=== PATIENT | male | born 1960 | race Caucasian/White ===

== ENCOUNTER 2021-04-05 12:23 | Emergency (ER) | payer BC, SELFPAY ==
--- NOTE | ~2021-04-05 | XR_ITS ---
XR foot RT min 3V 04/05/2021 13:55 Indication: Right foot pain. Patient stepped on glass. Procedure: 4 views right foot Comparison: No prior studies for comparison. Findings: There is osteoarthritis of the first MTP joint with mild hallux valgus. No acute fracture o r traumatic malalignment. No focal soft tissue abnormality. No foreign bodies identified. There is mi ld degenerative change of the talonavicular joint. There is anatomic alignment. Impression: 1: No radiopaque foreign bodies identified. 2: Mild polyarticular osteoarthritis. Reviewed, dictated and finalized at location A. Impression: 1: No radiopaque foreign bodies identified. 2: Mild polyarticular osteoarthritis.
--- NOTE | ~2021-04-05 | XR_ITS ---
XR hand RT min 3V 04/05/2021 13:55 Indication: Deep palm laceration. Procedure: 3 views right hand Comparison: No prior studies for comparison. Findings: There is soft tissue swelling overlying the metacarpals. There is soft tissue gas along the volar aspect of the soft tissues. No foreign body is identified. No acute fracture or traumatic antony lignment. There is mild polyarticular osteoarthritis. Impression: 1: No evidence for radiopaque foreign body. 2: No acute fracture or traumatic malalignment. Reviewed, dictated and finalized at location A. Impression: 1: No evidence for radiopaque foreign body. 2: No acute fracture or traumatic malalignment.
[2021-04-05 13:05] VITALS: BP 172/77; PULSE 91; RESP 18; TEMP 36.1; O2SAT 98
--- NOTE | 2021-04-05 14:20 | PC.NURSE ---
Attempted to give patient IV fentanyl, patient refused dose stating that he is allergic to all opiates. Reported to
--- NOTE | 2021-04-05 14:30 | ED.GENADULT ---
HPI - General Adult General Chief complaint: Extremity Injury, Upper Stated complaint: hand injury Time Seen by Provider: 04/05/21 13:04 Source: patient History of Present Illness HPI narrative: Patient is a 61 y/o male complaining of right hand pain following a fall around 7:30 AM this morning. He states that he was carrying a mirror which slipped out of his hands and he fell. He states that his right hand landed on broke mirror. He describes his pain as sharp and rates it as 10/10. There is no alleviating or exacerbating factor. He states that his last Tetanus shot was approximately 4 years ago. He has decreased sensation of right fingers and decreased ROM. He also has some right foot pain. He denies other injuries. Related Data Allergies Allergy/AdvReac Type Severity Reaction Status Date / Time codeine Allergy Swelling Verified 04/05/21 13:11 morphine Allergy Swelling Verified 04/05/21 13:11 Sulfa (Sulfonamide Allergy Hives Verified 04/05/21 13:10 Antibiotics) Review of Systems Constitutional: Constitutional: Denies chills, Denies fever(s), Denies headache(s) and Denies weakness Eyes: Eyes: Denies blurry vision ENT: Denies headache(s) and Denies neck pain Cardiovascular: Cardiovascular: Denies chest pain and Denies dyspnea Respiratory: Respiratory: Denies cough and Denies dyspnea Gastrointestinal: Gastrointestinal: Denies abdominal pain, Denies diarrhea, Denies nausea and Denies vomiting Genitourinary: Genitourinary: Denies hematuria and Denies dysuria Musculoskeletal: Musculoskeletal: Reports as per HPI, Denies back pain, Denies neck pain and Reports other (right hand pain) Integumentary/Breasts: Skin/Breast: Reports as per HPI and Reports wounds (right hand laceration) Neurologic: Denies headache(s) and Denies weakness [facility], [facility] Social History Social History Gender identity (if verbalized by the patient): Male Exam Const: General: no acute distress and well developed Orientation/consciousness: oriented to person, oriented to place, oriented to time and patient oriented x3 Eyes: General: appearance normal, both eyes and all related structures Conjunctivae: conjunctivae normal Neck: Neck: normal visual inspection and full ROM GI: GI Palp: No abdominal tenderness and Yes Soft to palpation Skin: General skin exam: normal color and turgor normal Trauma: laceration (5 cm laceration on volar aspect of right palm) Neuro: General: oriented to person, oriented to place, oriented to time and patient oriented x3 Cognition (Neuro): normal cognition Extrem: General: normal to inspection, full ROM and no pedal edema Right upper extremity: Extremity exam: right hand swelling and other (decreased sensation and decreased ROM of finger) Psych: Appearance: grossly normal Mental Status: mental status grossly normal Affect: normal affect Course Reevaluation(s) Reevaluation #1: Discussed with patient about his treatment plan and strongly advised him to be transferred to [place] to be evaluated by hand surgery. However, patient refuses transfer. He states that he wants to leave now and go to [place] tomorrow. Informed patient that he may suffer permanent damage resulting in possible loss of his hand and even as a result of delayed treatment. He still wants to leave. He will leave [place]. He is awake, alert and competent to make medical decision for himself. Date: 04/05/21 Consultations Consultation #1: Discussed with Dr. Otto (hand surgery) at [place], who agrees to accept the patient for transfer. Date: 04/05/21 Time: 14:50 Vital Signs Vital signs: Vital Signs Temperature 36.1 C L 04/05/21 13:05 Pulse Rate 91 04/05/21 13:05 Respiratory Rate 18 04/05/21 13:05 Blood Pressure 172/77 H 04/05/21 13:05 Pulse Oximetry 98 04/05/21 13:05 Temperature 36.1 C L 04/05/21 13:05 Pulse Rate 91 04/05/21 13:05 Respiratory Rate 18 04/05/21 13:05 Blood Pr
--- NOTE | 2021-04-05 14:53 | PC.NURSE ---
Patient told nursing staff that he would like to leave. Patient was educated by this RN and another RN about his risks of leaving AMA. Dr. Lynch also spoke with the patient and educated him on the risk of leaving his hand untreated, patient was also offered a nicotine patch to help with the smoking cravings. Patient desired to leave AMA despite the risks. Patient was educated that he could come back into the emergency room if he would like to get his hand treated.
== END 2021-04-05 14:50 | disposition left against medical advice (07) ==
LOC: ANHED 13:26
PROVIDERS: Emergency Provider Emergency Medicine
DX: S61.411A Laceration without foreign body of right hand, initial encounter (principal); M79.89 Other specified soft tissue disorders; W01.110A Fall on same level from slipping, tripping and stumbling with subsequent striking against sharp glass, initial encounter
CPT/HCPCS: 29125; 73130; 73630; 99284

== ENCOUNTER 2021-04-05 18:50 | Emergency (ER) | payer BC, SELFPAY ==
[2021-04-05 18:55] VITALS: BP 138/89; PULSE 138; RESP 20; TEMP 36.7; O2SAT 98
[2021-04-05 20:43] VITALS: BP 145/97; PULSE 99; RESP 16; TEMP 36.8; O2SAT 99
--- NOTE | 2021-04-05 20:53 | ED.GENADULT ---
HPI - General Adult General Chief complaint: Extremity Injury, Upper <Pennie Lynch MD - Last Filed: 04/06/21 11:52> Stated complaint: laceration <Pennie Lynch MD - Last Filed: 04/06/21 11:52> Time Seen by Provider: 04/05/21 20:53 <Pennie Lynch MD - Last Filed: 04/06/21 11:52> Source: patient <Pennie Lynch MD - Last Filed: 04/06/21 11:52> History of Present Illness HPI narrative: Patient is a 61 y/o male complaining of throbbing right hand pain. He rates his pain as 10/10. He was seen in this ED earlier for laceration. Due to concern for possible compartment syndrome, arrangement was made for him to be transferred to [facility] for evaluation by hand surgery. However, patient left AMA. He now returns to this ED ready to be transferred to [place]. <Pennie Lynch MD - Last Filed: 04/06/21 11:52> Related Data Allergies/adverse reactions: Allergies Allergy/AdvReac Type Severity Reaction Status Date / Time codeine Allergy Swelling Verified 04/05/21 13:11 morphine Allergy Swelling Verified 04/05/21 13:11 Sulfa (Sulfonamide Allergy Hives Verified 04/05/21 13:10 Antibiotics) <Pennie Lynch MD - Last Filed: 04/06/21 11:52> Review of Systems Constitutional: Constitutional: Denies chills, Denies fever(s), Denies headache(s) and Denies weakness <Pennie Lynch MD - Last Filed: 04/06/21 11:52> Eyes: Eyes: Denies blurry vision <Pennie Lynch MD - Last Filed: 04/06/21 11:52> ENT: Denies headache(s) and Denies neck pain <Pennie Lynch MD - Last Filed: 04/06/21 11:52> Cardiovascular: Cardiovascular: Denies chest pain and Denies dyspnea <Pennie Lynch MD - Last Filed: 04/06/21 11:52> Respiratory: Respiratory: Denies cough and Denies dyspnea <Pennie Lynch MD - Last Filed: 04/06/21 11:52> Gastrointestinal: Gastrointestinal: Denies abdominal pain, Denies diarrhea, Denies nausea and Denies vomiting <Pennie Lynch MD - Last Filed: 04/06/21 11:52> Genitourinary: Genitourinary: Denies hematuria and Denies dysuria <Pennie Lynch MD - Last Filed: 04/06/21 11:52> Musculoskeletal: Musculoskeletal: Denies back pain, Denies neck pain and Reports other (right hand pain and swelling) <Pennie Lynch MD - Last Filed: 04/06/21 11:52> Integumentary/Breasts: Skin/Breast: Reports wounds (right hand laceration) <Pennie Lynch MD - Last Filed: 04/06/21 11:52> Neurologic: Denies headache(s) and Denies weakness <Pennie Lynch MD - Last Filed: 04/06/21 11:52> [facility] Social History Social History: Social History Gender identity (if verbalized by the patient): Male <Pennie Lynch MD - Last Filed: 04/06/21 11:52> Exam Const: General: no acute distress and well developed <Pennie Lynch MD - Last Filed: 04/06/21 11:52> Orientation/consciousness: oriented to person, oriented to place, oriented to time and patient oriented x3 <Pennie Lynch MD - Last Filed: 04/06/21 11:52> HENMT: Head: normocephalic <Pennie Lynch MD - Last Filed: 04/06/21 11:52> Ears: external ears normal <Pennie Lynch MD - Last Filed: 04/06/21 11:52> General nose exam: Normal external nose present <Pennie Lynch MD - Last Filed: 04/06/21 11:52> Eyes: General: appearance normal, both eyes and all related structures <Pennie Lynch MD - Last Filed: 04/06/21 11:52> Conjunctivae: conjunctivae normal <Pennie Lynch MD - Last Filed: 04/06/21 11:52> Neck: Neck: normal visual inspection and full ROM <Pennie Lynch MD - Last Filed: 04/06/21 11:52> GI: GI Palp: No abdominal tenderness and Yes Soft to palpation <Pennie Lynch MD - Last Filed: 04/06/21 11:52> Skin: General skin exam: normal color and turgor normal <Pennie Lynch MD - Last Filed: 04/06/21 11:52> Trauma: laceration (5 cm laceration right hand) <Pennie Lynch MD - Last Filed: 04/06/21 11:52> Neuro: General: oriented to person, oriented to place, oriented to time and patient
[2021-04-05 22:59] VITALS: BP 142/94; PULSE 84; RESP 16; O2SAT 97
== END 2021-04-05 22:59 | disposition home or self-care (01) ==
PROVIDERS: Emergency Provider Emergency Medicine
DX: S61.411A Laceration without foreign body of right hand, initial encounter (principal); W25.XXXA Contact with sharp glass, initial encounter
CPT/HCPCS: 29125; 99282

== ENCOUNTER 2021-04-14 08:57 | Emergency (ER) | payer BC, SELFPAY ==
--- NOTE | ~2021-04-14 | XR_ITS ---
EXAMINATION: XR hand RT min 3V INDICATION: Right hand pain and swelling TECHNIQUE: Three views of the right hand are obtained. COMPARISON: 04/05/2021 FINDINGS: Soft tissue swelling surrounding metacarpals persists but has decreased. Bone alignment is normal. There is no fracture. Mild osteoarthritis is noted at the triscaphe and second third carpopha langeal joints. IMPRESSION: 1. Resolving soft tissue swelling without acute osseous abnormality. Reviewed, dictated and finalized at location A.
[2021-04-14 09:00] VITALS: BP 172/94; PULSE 99; RESP 15; TEMP 36.6; O2SAT 97
[2021-04-14 09:27] LABS: Basophils Percent Auto 0.3 % (0.2-1.2); Eosinophils Absolute Auto 0.1 K/mm3 (0-0.3); Hematocrit 41.7 % (42.0-52.0); Immature Granulocyte Absolute 0.01 K/mm3 (0.00-0.031); Immature Granulocyte Percent A 0.2 % (0-0.5); Lymphocytes Absolute Auto 1.74 K/mm3 (0.9-3.2); Lymphocytes Percent Auto 28.5 % (18.3-44.2); Mean Corpuscular HGB Conc 33.6 g/dl (32-36); Mean Corpuscular Hemoglobin 31.3 pg (26-34); Mean Corpuscular Volume 93.1 fl (80-100); Monocytes Absolute Auto 0.6 K/mm3 (0.1-0.6); Monocytes Percent Auto 10.5 % (2.6-8.5); Neutrophils Absolute Auto 3.6 K/mm3 (1.3-6.7); Neutrophils Percent Auto 58.5 % (45.5-73.1); Platelet Count Result 328 k/mm3 (150-375); Red Blood Count 4.48 M/mm3 (4.6-6.20); Red Cell Distribution Width 12.3 % (11.5-14.5); White Blood Count 6.1 K/mm3 (4.5-10.0)
--- NOTE | 2021-04-14 09:39 | ED.WOUNDLAC ---
HPI - Wound/Laceration General Chief Complaint: Wound/Laceration Stated Complaint: right hand injury Time Seen by Provider: 04/14/21 09:01 Source: patient Mode of arrival: ambulatory Limitations: no limitations History of Present Illness HPI narrative: Patient is a 61-year-old male who was seen on 04/05 with a laceration to right hand. Patient was to follow-up with [facility] hand surgeon, Dr. Otto in clinic on 04/06. Patient reports [facility] was unable to see him related to insurance. Patient reports he did not seek further follow up care related to injury. Patient presents complaining of right hand pain and swelling. Patient is a poor historian. Patient's hand appears in splint that is very dirty. Patient reports pain of 8/10. Related Data Allergies Allergy/AdvReac Type Severity Reaction Status Date / Time codeine Allergy Swelling Verified 04/05/21 13:11 morphine Allergy Swelling Verified 04/05/21 13:11 Sulfa (Sulfonamide Allergy Hives Verified 04/05/21 13:10 Antibiotics) Review of Systems Review of Systems: Narrative: CONSTITUTIONAL: Denies fever, chills, or sweats. EYES: Denies visual changes, redness, or discharge. ENT: Denies rhinorrhea, congestion, sore throat, or otalgia. CARDIOVASCULAR: Denies chest pain, palpitations, or edema. RESPIRATORY: Denies cough or dyspnea. GASTROINTESTINAL: Denies abdominal pain, nausea, vomiting, or diarrhea. GENITOURINARY: Denies dysuria or hematuria. SKIN: Denies rash or itching. MUSCULOSKELETAL: Reports right hand pain NEUROLOGIC: Denies headache, numbness, dizziness, or weakness. PSYCHIATRIC: Denies anxiety or depression. [facility] Past Medical History Medical History (Updated 04/14/21 @ 12:20 by YODIT Chaudhari) High cholesterol Surgical History Surgical History (Updated 04/14/21 @ 09:42 by YODIT Chaudhari) No significant past surgical history Family History Family History (Updated 04/14/21 @ 09:42 by YODIT Chaudhari) Other Heart disease Social History Social History Gender identity (if verbalized by the patient): Male Exam Narrative: Exam Narrative: GENERAL: Well-appearing, well-nourished, and in no acute distress. HEAD: Normocephalic, atraumatic. EYES: EOMI. No redness or drainage. Conjunctiva are normal. ENT: Mucous membranes pink and moist. CHEST: No respiratory distress. Clear to auscultation. HEART: Regular rate and rhythm. No murmur appreciated. Normal peripheral pulses. GI: Soft, nontender without rebound, or guarding. EXTREMITIES: Large wound to palm of right hand, edema noted, decreased range of motion to fingers SKIN: Warm, dry, no rash. NEURO: No focal deficits. Alert and oriented x3. Gait steady. PSYCH: Normal affect. No signs of depression or anxiety. Course Reevaluation(s) Reevaluation #1: Dr. Díaz in to evaluate patient's hand. Dr. Díaz dressed and splinted hand. Patient to follow up with Dr. Díaz next week for surgical repair. Vital Signs Vital signs: Vital Signs Temperature 36.6 C 04/14/21 09:00 Pulse Rate 99 04/14/21 09:00 Respiratory Rate 15 04/14/21 09:00 Blood Pressure 172/94 H 04/14/21 09:00 Pulse Oximetry 97 04/14/21 09:00 Temperature 36.6 C 04/14/21 09:00 Pulse Rate 72 04/14/21 11:05 Respiratory Rate 16 04/14/21 11:05 Blood Pressure 133/75 04/14/21 11:05 Pulse Oximetry 100 04/14/21 11:05 MDM - Wound/Laceration MDM Narrative Medical decision making narrative: Patient's hand splinted and dressed by Dr. Díaz. Patient to be started on antibiotics per Dr. Díaz and follow up with Dr. Díaz next week for surgical repair. Patient agrees with plan of care. Patient is stable for discharge at this time. Differential Diagnosis Differential diagnosis: Likely laceration, abscess, abrasion and avulsion of skin Lab Data Result diagrams: 04/14/21 09:19 04/14/21 09:19 Labs: Lab Results 04/14/2103/23
[2021-04-14 09:40] LABS: Alkaline Phosphatase 64 U/L (38-126); Aspartate Amino Transferase 35 U/L (17-59); Bilirubin,Total 0.3 mg/dL (0.2-1.3); Blood Urea Nitrogen 9 mg/dL (9-20); Calcium 8.8 mg/dL (8.4-10.2); Carbon Dioxide 27 mmol/L (22-30); Estimated Glomerular Filt Rate > 60; Glucose 135 mg/dL (75-110)
[2021-04-14 10:10] LABS: Alanine Aminotransferase 13 U/L (4-50); Anion Gap 6 mmol/L (8-16); Chloride 103 mmol/L (98-107); Sodium 136 mmol/L (137-145)
[2021-04-14 11:05] VITALS: BP 133/75; PULSE 72; RESP 16; O2SAT 100
--- NOTE | 2021-04-14 11:14 | PC.NURSE ---
pT AWAITING DR DE GUZMAN TO COME FOR ASSESSMENT. PT VERBALIZED UNDERSTANDING.
--- NOTE | 2021-04-14 11:47 | PC.NURSE ---
DR. DE GUZMAN AT BEDSIDE DRESSING WOUND AND PLACING NEW SPLINT
--- NOTE | 2021-04-14 12:27 | WPDCN ---
Assessment and Plan Assessment and plan (1) Laceration of right palm: Code(s): S61.411A - Laceration without foreign body of right hand, initial encounter Status: Acute (2) Flexor tendon laceration of right hand with open wound: Code(s): S66.821A - Laceration of other specified muscles, fascia and tendons at wrist and hand level, right hand, initial encounter; S61.401A - Unspecified open wound of right hand, initial encounter Status: Acute (3) Digital nerve laceration, finger: Code(s): S64.40XA - Injury of digital nerve of unspecified finger, initial encounter Status: Acute Additional Plan 1. Bandage 2. Splint. 3. Keflex. 4. F/U with Dr Díaz to register as an office patient and schedule surgical repair. Pt prefers tending to other business at this time rather than repair today. HPI Data of Consult Date/Time: 04/14/21 12:27 Primary Care Provider: Matthias Lewis MD Consult Narrative Narrative: Orlando Gillespie is a 61 year old male patient with complaints of pain and dysfunction of his right hand. Patient has been in this ER 5 days ago with the same complaint after lacerating his right mid palm on the broken mirror moving furniture at his home. 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 Attempt was made to refer him to [facility]. For. Reasons he was not accepted as an emergent patient. [facility] was [facility] and when he presented there apparently was told that his insurance could not be excepted. The patient now presents for further care of his right hand. The hand is not infected. There is a 4 cm laceration in the right mid palm. He has inability to flex either interphalangeal joint of the middle finger and is anesthetic at 1 aspect of the middle finger. I he had been discharged with a splint and bandage and apparently was still in that wound returning here today. It was said to been dirty. That The patient is somewhat of a difficult historian. We were able to identify insurance information from the computer at [place]. Patient has been under the care of Dr. Lewis in [place]. I believe he also has seen Dr. Cortez. Says he is supposed to be seeing Samuel Morrison. And I believed he has been seen by Dr. Chapin. He takes no medications at this time though he has been on medication for hypercholesterolemia and has been on diclofenac for arthritic pain. He told me that Dr. Cortez thought that he might have throat cancer. This apparently was based on a change in the character of his voice that did not resolve. He said he has had bronchitis in the past and was on an inhaler for a time. Patient does not recall any sort of scans were endoscopy. Mr. pedraza continues to smoke. Exam reveals the findings listed above. [facility] Past Medical History Medical History (Updated 04/14/21 @ 12:39 by Channing Díaz MD) High cholesterol Surgical History Surgical History (Updated 04/14/21 @ 09:42 by YODIT Chaudhari) No significant past surgical history Family History Family History (Updated 04/14/21 @ 09:42 by YODIT Chaudhari) Other Heart disease Social History Social History Gender identity (if verbalized by the patient): Male Meds Home Medications and Allergies Home Medications Medication Instructions Recorded Confirmed Type cephalexin 500 mg PO Q6H 5 Days #20 cap 04/14/21 Rx Allergies Allergy/AdvReac Type Severity Reaction Status Date / Time codeine Allergy Swelling Verified 04/05/21 13:11 morphine Allergy Swelling Verified 04/05/21 13:11 Sulfa (Sulfonamide Allergy Hives Verified 04/05/21 13:10 Antibiotics) Vital Signs Vital Signs - 24 hr 04/14/21 09:00 04/14/21 11:05 Temperature 97.8 F Pulse Rate 99 72 Respir
[2021-04-14 12:28] VITALS: BP 127/68; PULSE 72; RESP 15; O2SAT 97
== END 2021-04-14 12:29 | disposition home or self-care (01) ==
PROVIDERS: Emergency Provider Nurse Practitioner; PCP Emergency Medicine
DX: S66.821A Laceration of other specified muscles, fascia and tendons at wrist and hand level, right hand, initial encounter (principal); S64.40XA Injury of digital nerve of unspecified finger, initial encounter; S61.411A Laceration without foreign body of right hand, initial encounter; W25.XXXA Contact with sharp glass, initial encounter
CPT/HCPCS: 29125; 36415; 73130; 80053; 85025; 99283

== ENCOUNTER 2022-02-27 14:52 | Emergency (ER) | payer BC, SELFPAY ==
--- NOTE | ~2022-02-27 | XR_ITS ---
EXAM: XR tibia fibula RT 2V HISTORY: injury -INJURY TODAY,PAIN AND WOUND LOWER TIBFIB COMPARISON: None available FINDINGS: Normal mineralization. No fracture or dislocation. No lytic or blastic lesion. Joint space s maintained. No erosion or periosteal change. Soft tissues within normal limits. IMPRESSION: No acute osseous finding in the right tibia/fibula. Reviewed, dictated and finalized at location K.
[2022-02-27 15:04] VITALS: BP 106/69; PULSE 137; RESP 22; TEMP 36.3; O2SAT 99
--- NOTE | 2022-02-27 16:51 | ED.WOUNDLAC ---
HPI - Wound/Laceration General Chief Complaint: Wound/Laceration Stated Complaint: right leg laceration Time Seen by Provider: 02/27/22 16:46 History of Present Illness HPI narrative: 61-year-old male presents the emergency room for evaluation of a laceration to his right bender. Patient states that he bumped into a piece of glass, causing the glass to break and cutting his bender. Patient states his tetanus is up-to-date Related Data Allergies Allergy/AdvReac Type Severity Reaction Status Date / Time codeine Allergy Swelling Verified 04/05/21 13:11 morphine Allergy Swelling Verified 04/05/21 13:11 Sulfa (Sulfonamide Allergy Hives Verified 04/05/21 13:10 Antibiotics) Review of Systems Review of Systems: CONSTITUTIONAL: Denies fever, chills, or sweats. EYES: Denies visual changes, redness, or discharge. ENT: Denies rhinorrhea, congestion, sore throat, or otalgia. CARDIOVASCULAR: Denies chest pain, palpitations, or edema. RESPIRATORY: Denies cough or dyspnea. GASTROINTESTINAL: Denies abdominal pain, nausea, vomiting, or diarrhea. GENITOURINARY: Denies dysuria or hematuria. SKIN: Laceration to right lower extremity MUSCULOSKELETAL: Reports tenderness to right lower leg NEUROLOGIC: Denies headache, numbness, dizziness, or weakness. PSYCHIATRIC: Denies anxiety or depression. [facility] Past Medical History Medical History High cholesterol Surgical History Surgical History No significant past surgical history Family History Family History Other Heart disease Social History Social History Gender identity (if verbalized by the patient): Male Exam Narrative: GENERAL: Well-appearing, well-nourished, and in no acute distress. HEAD: Normocephalic, atraumatic. EYES: PERRLA and EOMI. CHEST: Clear to auscultation. No respiratory distress. No wheezes rales or rhonchi HEART: Regular rate and rhythm. No murmur heard. Normal peripheral pulses. ABDOMEN: Soft, nontender, nondistended, normal active bowel sounds. EXTREMITIES: Tenderness to the tibial surface of the right lower extremity SKIN: 4 cm linear laceration to the anterior surface of the right lower extremity NEURO: No focal deficits. Alert and oriented x3. PSYCH: Normal mood and affect. Course Vital Signs Vital signs: Vital Signs Temperature 36.3 C L 02/27/22 15:04 Pulse Rate 137 H 02/27/22 15:04 Respiratory Rate 22 H 02/27/22 15:04 Blood Pressure 106/69 02/27/22 15:04 Pulse Oximetry 99 02/27/22 15:04 Temperature 36.3 C L 02/27/22 15:04 Pulse Rate 137 H 02/27/22 15:04 Respiratory Rate 22 H 02/27/22 15:04 Blood Pressure 106/69 02/27/22 15:04 Pulse Oximetry 99 02/27/22 15:04 Procedures Laceration Laceration 1: Date: 02/27/22 Time: 17:52 Site: lower extremity Side (If applicable): right Size (cm): 5 Description: linear Depth: simple, single layer Amount of anesthesia used (mL): 10 Pre-repair: irrigated ====== Skin Level ====== Skin layer closed with: nylon Size (cm): 4-0 Number of sutures: 9 Technique: simple, interrupted ====== Subcutaneous Layer ====== ====== Muscle Layer ====== ====== Tendon Layer ====== Discharge Plan Discharge Clinical Impression: Laceration of lower leg, right Qualifiers: Encounter type: initial encounter Qualified Code(s): S81.811A - Laceration without foreign body, right lower leg, initial encounter Patient Disposition: Home, Self-Care Condition: Stable Instructions: Antibiotic Form, Laceration (ED) Additional Instructions: Tylenol and ibuprofen as needed for pain. Take the antibiotics as prescribed. May apply ice to the area for the first 2 days following i
[2022-02-27] MEDS: LIDO 1%/EPINEPHRINE 1:100,000 10 ML VIAL INFILTRATE (18:38)
== END 2022-02-27 18:39 | disposition home or self-care (01) ==
PROVIDERS: Emergency Provider Nurse Practitioner Family
DX: S81.811A Laceration without foreign body, right lower leg, initial encounter (principal); E78.00 Pure hypercholesterolemia, unspecified; W25.XXXA Contact with sharp glass, initial encounter
CPT/HCPCS: 12002; 73590; 99283

== ENCOUNTER 2022-03-17 12:47 | Emergency (ER) | payer BC, SELFPAY ==
[2022-03-17 12:48] VITALS: BP 172/101; PULSE 84; RESP 16; TEMP 36.6; O2SAT 99
--- NOTE | 2022-03-17 12:56 | PC.NURSE ---
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 Patient states he was too busy taking care of his mother.
[2022-03-17 14:26] LABS: Basophils Percent Auto 0.3 % (0.2-1.2); Eosinophils Absolute Auto 0.2 K/mm3 (0-0.3); Eosinophils Percent Auto 1.4 % (0-4.4); Hemoglobin 14.1 g/dL (14.0-18.0); Immature Granulocyte Absolute 0.03 K/mm3 (0.00-0.031); Immature Granulocyte Percent A 0.3 % (0-0.5); Lymphocytes Absolute Auto 2.09 K/mm3 (0.9-3.2); Mean Corpuscular HGB Conc 32.8 g/dl (32-36); Mean Corpuscular Volume 94.5 fl (80-100); Mean Platelet Volume 8.9 fl (7.4-10.4); Monocytes Absolute Auto 1.1 K/mm3 (0.1-0.6); Monocytes Percent Auto 10.6 % (2.6-8.5); Neutrophils Percent Auto 67.4 % (45.5-73.1); Platelet Count Result 334 k/mm3 (150-375); Red Blood Count 4.55 M/mm3 (4.6-6.20); Red Cell Distribution Width 13.1 % (11.5-14.5); White Blood Count 10.4 K/mm3 (4.5-10.0)
--- NOTE | 2022-03-17 14:28 | PC.NURSE ---
Patient approached this RN stating, I am going to leave and go smoke a cigarette. I have to go do shit at home anyway. I'll check my blood work tomorrow. Patient was then advised to stay in room and await blood results. Patient continued to ambulate out of ED and left ED before any AMA paperwork could be signed. Patient was educated on the need to take his prescribed antibiotics that were previously prescribed before patient eloped. NOEL Bruno and ED charge nurse Angelique was made aware patient left ED.
--- NOTE | 2022-03-17 14:40 | PC.NURSE ---
Patient back in room stating he did not leave the property and has decided to stay and wait for results. ED charge nurse Angelique and NOEL Bruno aware.
[2022-03-17 14:41] LABS: Alanine Aminotransferase 17 U/L (6-50); Alkaline Phosphatase 81 U/L (38-126); Anion Gap 6 mmol/L (8-16); Aspartate Amino Transferase 33 U/L (17-59); Bilirubin,Total 0.3 mg/dL (0.2-1.3); Blood Urea Nitrogen 13 mg/dL (9-20); Calcium 8.8 mg/dL (8.4-10.2); Carbon Dioxide 26 mmol/L (22-30); Chloride 107 mmol/L (98-107); Estimated CRCL calculation 101 ml/min; Estimated Glomerular Filt Rate > 60; Glucose 102 mg/dL (65-110); Potassium 4.2 mmol/L (3.4-5.0); Sodium 139 mmol/L (137-145)
--- NOTE | 2022-03-17 14:45 | ED.GENADULT ---
HPI - General Adult General Chief complaint: Skin/Abscess/Foreign Body Stated complaint: Stitches Removal Time Seen by Provider: 03/17/22 13:20 Source: patient Mode of arrival: ambulatory Limitations: no limitations History of Present Illness HPI narrative: Patient is a 61-year-old male who presents to the ED for suture removal. Patient reports he sustained a laceration from a piece of glass on 02/27 and was seen in the ED at that time. He had 9 sutures placed in his right anterior bender. He states 3 of the sutures broke open within a couple days of having the wound closed, however, he was never evaluated for this. He was instructed to have his sutures removed 4-5 days ago but states he didn't have time to go anywhere and would like them removed today. Patient was prescribed antibiotics on 02/27 but left before his paperwork was given and was unaware that these were sent to his pharmacy. He has not taken any of the antibiotics. He reports having pain, swelling, redness, and drainage from the wound. Denies any fever or chills, numbness, tingling. Related Data Allergies Allergy/AdvReac Type Severity Reaction Status Date / Time codeine Allergy Swelling Verified 04/05/21 13:11 morphine Allergy Swelling Verified 04/05/21 13:11 Sulfa (Sulfonamide Allergy Hives Verified 04/05/21 13:10 Antibiotics) Review of Systems Review of Systems: CONSTITUTIONAL: Denies fever, chills. SKIN: Reports laceration to right bender, surrounding erythema, swelling to right anterior bender. MUSCULOSKELETAL: Reports pain to right bender. NEUROLOGIC: Denies numbness, tingling, or weakness. All systems reviewed & are unremarkable except as noted in HPI and below PMFSH Past Medical History Medical History High cholesterol Surgical History Surgical History No significant past surgical history Family History Family History Other Heart disease Social History Social History (Updated 03/17/22 @ 15:42 by Kiana Love PA-C) Smoking status: Current every day smoker Alcohol intake: current Gender identity (if verbalized by the patient): Male Exam Narrative: GENERAL: Chronically ill appearing, disheveled, well-nourished, non-toxic, in no acute distress. HEAD: Normocephalic, atraumatic. RESPIRATORY: Airway patent, respirations nonlabored. CARDIOVASCULAR: Regular rate and rhythm without murmurs, rubs, or gallops. Peripheral pulses 2+ and equal bilaterally. MUSCULOSKELETAL: Moves all extremities. Strength/ROM intact. SKIN: Approximately 5 cm laceration to right anterior bender with wound dehiscence, diffuse crusting and scabbing present around wound margins, minimal purulent drainage, tenderness to palpation. Hand-sized area of erythema surrounding laceration. Mild swelling surrounding wound margins. NEURO: A&O X3. Speech clear. Cranial nerves II-XII grossly intact. Steady gait. No ataxic movements. PSYCHIATRIC: Appropriate mood and affect. Normal interaction. Course Vital Signs Vital signs: Vital Signs Temperature 97.8 F 03/17/22 12:48 Pulse Rate 84 03/17/22 12:48 Respiratory Rate 16 03/17/22 12:48 Blood Pressure 172/101 H 03/17/22 12:48 Pulse Oximetry 99 03/17/22 12:48 Oxygen Delivery Room Air 03/17/22 12:48 Temperature 97.8 F 03/17/22 12:48 Pulse Rate 84 03/17/22 12:48 Respiratory Rate 16 03/17/22 12:48 Blood Pressure 172/101 H 03/17/22 12:48 Pulse Oximetry 99 03/17/22 12:48 Oxygen Delivery Room Air 03/17/22 12:48 Procedures Foreign Body Removal Foreign Body #1: Foreign Body Removal Date: 03/17/22 Foreign Body Removal Time: 15:44 Time Out Performed: yes Site: right and lower extremity (anterior bender) Description of foreign body: other (sutures) Sedation/Analgesia: none Technique: rodney
[2022-03-17 15:55] VITALS: BP 158/92; PULSE 89; RESP 16; O2SAT 98
[2022-03-17 17:01] VITALS: BP 132/88; PULSE 82; RESP 16; O2SAT 98
== END 2022-03-17 17:04 | disposition home or self-care (01) ==
PROVIDERS: Physician Assistant; Emergency Provider Emergency Medicine
DX: L03.115 Cellulitis of right lower limb (principal); E78.5 Hyperlipidemia, unspecified; Z48.02 Encounter for removal of sutures
CPT/HCPCS: 36415; 80053; 85025; 96365; 99284; J3370

== ENCOUNTER 2022-04-03 15:18 | Emergency (ER) | payer BC, SELFPAY ==
[2022-04-03 15:20] VITALS: BP 150/81; PULSE 107; RESP 20; TEMP 37.1; O2SAT 97
--- NOTE | 2022-04-03 15:59 | PC.NURSE ---
PT UNWILLING TO STAY FOR A ROOM, PT STATED, BE BACK IN THE MORNING . AMBULATED OUT OF ED WITHOUT STEADY GAIT AND IN NO DISTRESS
== END 2022-04-03 16:00 | disposition left against medical advice (07) ==
LOC: ANHED 16:14
DX: Z53.21 Procedure and treatment not carried out due to patient leaving prior to being seen by health care provider (principal)
CPT/HCPCS: 99199

== ENCOUNTER 2022-04-04 15:33 | Emergency (ER) | payer BC, SELFPAY ==
[2022-04-04 16:03] VITALS: BP 147/85; PULSE 104; RESP 16; TEMP 36.4; O2SAT 97
--- NOTE | 2022-04-04 17:09 | ED.WOUNDLAC ---
HPI - Wound/Laceration General Chief Complaint: Wound/Laceration Stated Complaint: infect leg Time Seen by Provider: 04/04/22 16:44 Source: patient and old records reviewed Mode of arrival: ambulatory Limitations: no limitations History of Present Illness HPI narrative: Patient is a 62-year-old male who presents the ED with report of wound to his right lower leg. Per chart review, patient was initially seen in the ED on 02/27 for a laceration to his right anterior bender sustained from a piece of glass. He was prescribed antibiotics at that time, however he did not take these. He was seen again in the ED on 03/17 for delayed suture removal at which point the wound did appear infected. I saw the patient at that time. There was dehiscence of the wound, but the sutures were able to be removed. Since he had not attempted outpatient therapy yet, he was again discharged home with oral antibiotics after receiving a dose of IV vancomycin in the ED. Patient returns today with report of drainage, redness, warmth from the wound. He did finish the entire course of Keflex that was prescribed to him at his last ED visit and he reports the wound did appear improved up until 2 days ago when it began having pain, drainage, and crusting around the wound. He has been using an antibiotic ointment which she believes is the cause of the crusting. Denies any known fever, but does report having increased diaphoresis at home, though he is unsure if this is related to the warm weather outside. Patient denies any weakness, numbness, tingling, nausea, vomiting. Related Data Allergies Allergy/AdvReac Type Severity Reaction Status Date / Time codeine Allergy Swelling Verified 04/05/21 13:11 morphine Allergy Swelling Verified 04/05/21 13:11 Sulfa (Sulfonamide Allergy Hives Verified 04/05/21 13:10 Antibiotics) Review of Systems Review of Systems: CONSTITUTIONAL: Reports diaphoresis. Denies fever, chills. CARDIOVASCULAR: Denies chest pain. RESPIRATORY: Denies dyspnea. GASTROINTESTINAL: Denies nausea, vomiting. SKIN: Reports wound to right anterior bender with drainage, crusting, redness, warmth. MUSCULOSKELETAL: Reports pain to right anterior bender. NEUROLOGIC: Denies numbness, tingling, or weakness. All systems reviewed & are unremarkable except as noted in HPI and below PMFSH Past Medical History Medical History High cholesterol Surgical History Surgical History No significant past surgical history Family History Family History Other Heart disease Social History Social History Smoking status: Current every day smoker Alcohol intake: current Gender identity (if verbalized by the patient): Male Exam Narrative: GENERAL: Mildly disheveled, well-nourished, non-toxic, in no acute distress. HEAD: Normocephalic, atraumatic. NECK: Supple. No adenopathy, no masses. RESPIRATORY: Airway patent, respirations nonlabored. Clear to auscultation bilaterally, no rales, rhonchi, wheezing. CARDIOVASCULAR: Regular rate and rhythm without murmurs, rubs, or gallops. Peripheral pulses 2+ and equal bilaterally. MUSCULOSKELETAL: Moves all extremities. Strength/ROM intact. TTP over R anterior lower bender surrounding wound. SKIN: Approximately 4 cm dehisced wound to right lower anterior bender that does appear to be healing, but does have trace amount of purulent drainage from the laceration. Fist sized area of erythema, warmth, and skin irritation encircling wound in all directions. Moderate amount of yellow crusting and scabbing in the immediate perimeter surrounding the wound. NEURO: A&O X3. Speech clear. Cranial nerves II-XII grossly intact. Steady gait. No ataxic movements. PSYCHIATRIC: Appropriate mood and affect. Normal interaction. Course Vital
[2022-04-04] MEDS: SODIUM CHLORIDE 0.9% IV 1,000 ML 999 ML IV CONT (17:36)
[2022-04-04 17:43] LABS: Basophils Percent Auto 0.5 % (0.2-1.2); Eosinophils Absolute Auto 0.2 K/mm3 (0-0.3); Eosinophils Percent Auto 2.2 % (0-4.4); Hemoglobin 14.2 g/dL (14.0-18.0); Immature Granulocyte Absolute 0.01 K/mm3 (0.00-0.031); Immature Granulocyte Percent A 0.1 % (0-0.5); Lymphocytes Absolute Auto 1.65 K/mm3 (0.9-3.2); Lymphocytes Percent Auto 20.3 % (18.3-44.2); Mean Corpuscular Hemoglobin 31.1 pg (26-34); Mean Corpuscular Volume 94.3 fl (80-100); Mean Platelet Volume 9.1 fl (7.4-10.4); Monocytes Absolute Auto 0.9 K/mm3 (0.1-0.6); Monocytes Percent Auto 10.7 % (2.6-8.5); Neutrophils Absolute Auto 5.4 K/mm3 (1.3-6.7); Neutrophils Percent Auto 66.2 % (45.5-73.1); Platelet Count Result 348 k/mm3 (150-375); Red Blood Count 4.56 M/mm3 (4.6-6.20); Red Cell Distribution Width 13.1 % (11.5-14.5); White Blood Count 8.1 K/mm3 (4.5-10.0)
[2022-04-04 17:57] LABS: Lactic Acid Reflex 1.3 mmol/L (0.7-2.0)
[2022-04-04 18:13] LABS: Alanine Aminotransferase 16 U/L (6-50); Albumin Level 4.5 g/dL (3.5-5.1); Alkaline Phosphatase 65 U/L (38-126); Anion Gap 7 mmol/L (8-16); Aspartate Amino Transferase 30 U/L (17-59); Bilirubin,Total 0.3 mg/dL (0.2-1.3); Blood Urea Nitrogen 13 mg/dL (9-20); Calcium 8.8 mg/dL (8.4-10.2); Carbon Dioxide 25 mmol/L (22-30); Chloride 107 mmol/L (98-107); Estimated Glomerular Filt Rate > 60; Glucose 123 mg/dL (65-110); Potassium 4.1 mmol/L (3.4-5.0); Sodium 139 mmol/L (137-145)
[2022-04-04 19:01] VITALS: BP 136/94; PULSE 76; RESP 14; TEMP 36.3; O2SAT 98
--- NOTE | 2022-04-04 19:05 | PC.NURSE ---
Report given to PIYUSH Woodall
[2022-04-04 20:15] VITALS: PULSE 68; RESP 18; O2SAT 98
== END 2022-04-04 20:16 | disposition home or self-care (01) ==
PROVIDERS: Physician Assistant; Emergency Provider Emergency Medicine
DX: L03.115 Cellulitis of right lower limb (principal)
CPT/HCPCS: 36415; 80053; 83605; 85025; 87040; 87070; 87147; 87186; 87205; 96361; 96365; 99284; J3370; J7030

== ENCOUNTER 2022-04-15 07:34 | Emergency (ER) | payer BC, SELFPAY ==
[2022-04-15 07:36] VITALS: BP 151/84; PULSE 100; RESP 16; TEMP 36.6; O2SAT 99
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
== END 2022-04-15 08:47 | disposition home or self-care (01) ==
LOC: ANHED 08:33
PROVIDERS: Emergency Provider Emergency Medicine
DX: L03.115 Cellulitis of right lower limb (principal); E78.00 Pure hypercholesterolemia, unspecified; F17.200 Nicotine dependence, unspecified, uncomplicated
CPT/HCPCS: 99283

== ENCOUNTER 2022-04-23 21:23 | Emergency (ER) | payer BC, SELFPAY ==
[2022-04-23 21:29] VITALS: BP 164/95; PULSE 138; RESP 18; TEMP 36.6; O2SAT 96
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
[2022-04-23 23:51] VITALS: BP 151/97; PULSE 124; RESP 18; O2SAT 97
== END 2022-04-23 23:33 | disposition home or self-care (01) ==
LOC: ANHED 23:17
PROVIDERS: Emergency Provider Emergency Medicine
DX: L03.115 Cellulitis of right lower limb (principal); E78.00 Pure hypercholesterolemia, unspecified; F17.200 Nicotine dependence, unspecified, uncomplicated
CPT/HCPCS: 99283

== ENCOUNTER 2023-04-03 16:54 | Emergency (ER) | payer BC, SELFPAY ==
--- NOTE | ~2023-04-03 | XR_ITS ---
XR hand LT min 3V 04/03/2023 17:44 Indication: Left hand pain. Fourth digit blister. Procedure: 3 views left hand Comparison: No prior studies for comparison. Findings: There is focal soft tissue prominence along the ulnar aspect of the fourth finger. There is anatomic alignment. No fracture or traumatic malalignment. No erosive changes. There is a linear rad iopaque structure overlying the first distal phalanx. Cannot exclude foreign body. Impression: 1: No acute bone or joint abnormality. Reviewed, dictated and finalized at location L. Impression: 1: No acute bone or joint abnormality.
[2023-04-03 16:57] VITALS: BP 173/102; PULSE 104; RESP 18; TEMP 36.8; O2SAT 100
--- NOTE | 2023-04-03 17:23 | ED.WOUNDLAC ---
HPI - Wound/Laceration General Chief Complaint: Wound/Laceration <Alma Hurd PA-C - Last Filed: 04/05/23 14:31> Stated Complaint: finger infection <DOMINIC Vora Last Filed: 04/05/23 14:31> Time Seen by Provider: 04/03/23 17:09 <Alma Hurd PA-C - Last Filed: 04/05/23 14:31> History of Present Illness HPI narrative: 63 y/o M reports for evaluation of L 4th digit blister and pain since yesterday. Pt states he cut his finger with his 5th fingernail last night and has developed a blister that is growing and painful. He is reporting pain along the entirety of the flexor tendon with difficulty with range of motion. He denies fever, body aches. Denies paresthesias. State his tetanus is up to date. <DOMINIC Vora Last Filed: 04/05/23 14:31> Related Data Allergies/Adverse Reactions: Allergies Allergy/AdvReac Type Severity Reaction Status Date / Time codeine Allergy Swelling Verified 04/23/22 21:32 morphine Allergy Swelling Verified 04/23/22 21:32 Sulfa (Sulfonamide Allergy Hives Verified 04/23/22 21:32 Antibiotics) <DOMINIC Vora Last Filed: 04/05/23 14:31> Review of Systems Review of Systems: CONSTITUTIONAL: Denies fever, chills EYES: Denies visual changes, redness, or discharge. ENT: Denies rhinorrhea, congestion, sore throat, or otalgia. CARDIOVASCULAR: Denies chest pain, palpitations, or edema. RESPIRATORY: Denies cough or dyspnea. GASTROINTESTINAL: Denies abdominal pain, nausea, vomiting, or diarrhea. GENITOURINARY: Denies dysuria or hematuria. SKIN: See HPI MUSCULOSKELETAL: Denies back pain, joint pain, or myalgia. NEUROLOGIC: Denies headache, numbness, dizziness, or weakness. PSYCHIATRIC: Denies anxiety or depression. <DOMINIC Vora Last Filed: 04/05/23 14:31> [facility] Past Medical History Medical History: Medical History High cholesterol <Alma Hurd PA-C - Last Filed: 04/05/23 14:31> Surgical History Surgical History: Surgical History No significant past surgical history <Alma Hurd PA-C - Last Filed: 04/05/23 14:31> Family History Family History: Family History Other Heart disease <Alma Hurd PA-C - Last Filed: 04/05/23 14:31> Social History Social History: Social History Smoking status: Current every day smoker Alcohol intake: current Gender identity (if verbalized by the patient): Male <Alma Hurd PA-C - Last Filed: 04/05/23 14:31> Exam Narrative: GENERAL: Well-appearing, in no acute distress. HEAD: Normocephalic EYES: PERRLA ENT: Nares clear. Mucous membranes moist. Oropharynx without tonsillar hypertrophy exudate or other lesions. NECK: Supple. CHEST: No respiratory distress. Clear to auscultation, no adventitious breath sounds. HEART: Regular rate and rhythm. No murmur heard. Normal peripheral pulses. ABDOMEN: Soft, nontender, normal active bowel sounds. EXTREMITIES: Normal range of motion. No edema. SKIN: L 4th finger with distal 1.5cm x 2.5cm fluctuant bullae overlying the ulnar aspect of the DIP. Finger held in flexed position. Tenderness along the entire flexion sheath with mild edema. Pain with passive extension of finger. Limited active extension and flexion. Cap refill <2. Sensation intact. NEURO: No focal deficits. Alert and oriented x3. PSYCH: Normal mood and affect. <Alma Hurd PA-C - Last Filed: 04/05/23 14:31> Course WEB DESIGN INTERN/PA Physician Supervision For this patient encounter, I reviewed the WEB DESIGN INTERN or PA documentation, treatment plan, and medical decision making and I had [id number] time with this patient. I performed all aspects of the MDM as documented. <Constanza Andrews MD - Last
[2023-04-03 17:48] LABS: Basophils Percent Auto 0.4 % (0.2-1.2); Eosinophils Absolute Auto 0.2 K/mm3 (0-0.3); Eosinophils Percent Auto 1.6 % (0-4.4); Hematocrit 42.7 % (42.0-52.0); Hemoglobin 14.8 g/dL (14.0-18.0); Immature Granulocyte Absolute 0.03 K/mm3 (0.00-0.031); Immature Granulocyte Percent A 0.3 % (0-0.5); Lymphocytes Percent Auto 22.4 % (18.3-44.2); Mean Corpuscular HGB Conc 34.7 g/dl (32-36); Mean Corpuscular Hemoglobin 31.2 pg (26-34); Mean Corpuscular Volume 90.1 fl (80-100); Mean Platelet Volume 8.8 fl (7.4-10.4); Monocytes Absolute Auto 1.2 K/mm3 (0.1-0.6); Monocytes Percent Auto 11.2 % (2.6-8.5); Neutrophils Absolute Auto 6.6 K/mm3 (1.3-6.7); Neutrophils Percent Auto 64.1 % (45.5-73.1); Platelet Count Result 327 k/mm3 (150-375); Red Blood Count 4.74 M/mm3 (4.6-6.20); Red Cell Distribution Width 12.5 % (11.5-14.5); White Blood Count 10.3 K/mm3 (4.5-10.0)
[2023-04-03 18:06] LABS: CRP < 0.5 mg/dL (<1.0)
[2023-04-03 18:22] LABS: Erythrocyte Sedimentation Rate 11 mm/hr (0-20)
--- NOTE | 2023-04-03 18:32 | PC.NURSE ---
pt refused wound swab
[2023-04-03] MEDS: SODIUM CHLORIDE 0.9% IV 1,000 ML 999 ML IV CONT (18:43)
--- NOTE | 2023-04-03 18:45 | PC.NURSE ---
Pt declined wound culture.
[2023-04-03] MEDS: AMPICILLIN SULB 1.5 GM/NS 50ML 1.5 GM/50 ML VIAL IVPB (18:58)
[2023-04-03 19:15] VITALS: BP 184/101; PULSE 88; RESP 14; O2SAT 99
[2023-04-03] MEDS: VANCOMYCIN 1,000 MG/NS 250 ML 1,000 MG/250 ML BAG 250 MG IVPB (19:18)
[2023-04-03 20:39] VITALS: BP 171/93; PULSE 88; RESP 19; O2SAT 96
== END 2023-04-03 20:50 | disposition short-term general hospital (02) ==
PROVIDERS: Emergency Provider Physician Assistant
DX: M65.842 Other synovitis and tenosynovitis, left hand (principal); E78.00 Pure hypercholesterolemia, unspecified; F17.200 Nicotine dependence, unspecified, uncomplicated
CPT/HCPCS: 36415; 73130; 85025; 85652; 86140; 96365; 96367; 99284; J0295; J3370; J7030

== ENCOUNTER 2023-04-29 19:40 | Emergency (ER) | payer BC, SELFPAY ==
--- NOTE | ~2023-04-29 | XR_ITS ---
EXAM: XR hand RT min 3V DATE: 04/29/2023 21:05 HISTORY: right middle finger pain after trauma . COMPARISON: 04/14/2021. FINDINGS: Normal mineralization. Oblique, mildly comminuted fracture through the proximal right thir d phalange, with one half shaft width anterior displacement and minimal, 2-3 mm lateral displacement. No lytic or blastic lesion. Polyarticular osteoarthritic changes. No erosion or periosteal change. S oft tissues within normal limits. IMPRESSION: Mildly displaced and mildly comminuted fracture of the right third proximal phalange. Reviewed, dictated and finalized at location K.
[2023-04-29 19:41] VITALS: BP 161/85; PULSE 97; RESP 18; TEMP 36.8; O2SAT 100
--- NOTE | 2023-04-29 21:02 | ED.GENADULT ---
HPI - General Adult General Chief complaint: Extremity Injury, Upper Stated complaint: right middle finger injury Time Seen by Provider: 04/29/23 20:37 Source: patient Mode of arrival: ambulatory Limitations: no limitations History of Present Illness HPI narrative: This is a 63-year-old male who presents to the ED with chief complaint of right middle finger pain and swelling after an injury today just prior to arrival. Patient states that he was walking down the stairs when he tripped and hit his hand on the edge of the door frame and then landed on it on the ground. He reports immediate pain and swelling to the right middle finger. He reports that he has old right hand injuries that cause chronic numbness and weakness in the affected finger. Denies any further site of pain or injury. Related Data Allergies Allergy/AdvReac Type Severity Reaction Status Date / Time codeine Allergy Swelling Verified 04/29/23 19:40 morphine Allergy Swelling Verified 04/29/23 19:40 Sulfa (Sulfonamide Allergy Hives Verified 04/29/23 19:40 Antibiotics) PMFSH Past Medical History Medical History High cholesterol Surgical History Surgical History No significant past surgical history Family History Family History Other Heart disease Social History Social History Smoking status: Current every day smoker Alcohol intake: current Gender identity (if verbalized by the patient): Male Exam Narrative: GENERAL: Well-appearing, well-nourished, and in no acute distress. HEAD: Normocephalic, atraumatic. EYES: PERRLA and EOMI. ENT: Nares clear, no rhinorrhea or epistaxis. Mucous membranes moist. Oropharynx without tonsillar hypertrophy exudate or other lesions. NECK: Supple. No adenopathy or masses. CHEST: No respiratory distress. Clear to auscultation. No wheezes rales or rhonchi HEART: Regular rate and rhythm. No murmur heard. Normal peripheral pulses. ABDOMEN: Soft, nontender, nondistended, normal active bowel sounds. MSK: RUE: The right middle finger has moderate swelling. Mild tenderness but sensation is decreased at baseline. Decreased range of motion of that finger at baseline. He does have distal sensation as well as good cap refill. LUE: Benign SKIN: Warm, dry, no rash. NEURO: Alert and oriented x3. No focal deficits. PSYCH: Normal mood and affect. Course Vital Signs Vital signs: Vital Signs Temperature 98.2 F 04/29/23 19:41 Pulse Rate 97 04/29/23 19:41 Respiratory Rate 18 04/29/23 19:41 Blood Pressure 161/85 H 04/29/23 19:41 Pulse Oximetry 100 04/29/23 19:41 Oxygen Delivery Room Air 04/29/23 19:41 Temperature 98.2 F 04/29/23 19:41 Pulse Rate 97 04/29/23 19:41 Respiratory Rate 18 04/29/23 19:41 Blood Pressure 161/85 H 04/29/23 19:41 Pulse Oximetry 100 04/29/23 19:41 Oxygen Delivery Room Air 04/29/23 19:41 Procedures Orthopedic Splinting/Casting Injury #1: Splinting/Casting Date: 04/29/23 Splinting/Casting Time: 22:09 Upper Extremity Injury Location: hand Upper Extremity Immobilizer: volar splint Splint: customized in ED OCL: volar Pre-Procedure Neuro Vascular Exam: normal Post-Procedure Neuro Vascular Exam: normal Medical Decision Making MDM Narrative Medical decision making narrative: This is a 63-year-old male who presents to the ED with chief complaint of right middle finger injury occurring prior to arrival today. Vitals are normal. Exam does reveal a swollen and tender right middle finger. X-rays of the right hand reveal mildly displaced oblique fracture of the third proximal phalanx. I reached out to Dr. Mancilla (Plastic) who recommends volar splint and he will see the
== END 2023-04-29 22:12 | disposition home or self-care (01) ==
PROVIDERS: Emergency Provider Physician Assistant
DX: S62.612A Displaced fracture of proximal phalanx of right middle finger, initial encounter for closed fracture (principal); E78.00 Pure hypercholesterolemia, unspecified; F17.200 Nicotine dependence, unspecified, uncomplicated; W10.9XXA Fall (on) (from) unspecified stairs and steps, initial encounter
CPT/HCPCS: 29125; 73130; 99284

== ENCOUNTER 2023-06-25 22:43 | Emergency (ER) | payer BC, SELFPAY ==
[2023-06-25 22:47] VITALS: BP 142/92; PULSE 135; RESP 18; TEMP 36.9; O2SAT 95
--- NOTE | 2023-06-25 23:42 | ED.WOUNDLAC ---
HPI - Wound/Laceration General Chief Complaint: Wound/Laceration Stated Complaint: L. hand lac Time Seen by Provider: 06/25/23 22:59 Source: patient Mode of arrival: ambulatory Limitations: no limitations History of Present Illness HPI narrative: This is a 63-year-old male that presents to the emergency department for a laceration to the left hand sustained just prior to arrival. Reports he has a broken mirror in his home. He accidentally hit his hand on this. Sustained a laceration to the left hand. He was unable to get the bleeding controlled which prompted him to be seen. He is not up-to-date on his tetanus vaccination. Denies decreased range of motion or numbness. Related Data Allergies Allergy/AdvReac Type Severity Reaction Status Date / Time codeine Allergy Swelling Verified 04/29/23 19:40 morphine Allergy Swelling Verified 04/29/23 19:40 Sulfa (Sulfonamide Allergy Hives Verified 04/29/23 19:40 Antibiotics) Review of Systems Review of Systems: CONSTITUTIONAL: Denies fever SKIN: Reports laceration NEUROLOGIC: Denies numbness All systems reviewed & are unremarkable except as noted in HPI and below PMFSH Past Medical History Medical History High cholesterol Surgical History Surgical History No significant past surgical history Family History Family History Other Heart disease Social History Social History Smoking status: Current every day smoker Alcohol intake: current Gender identity (if verbalized by the patient): Male Exam Narrative: GENERAL: Well-appearing, well-nourished, and in no acute distress. HEAD: Normocephalic, atraumatic. EYES: EOMI. EXTREMITIES: Normal range of motion. No edema or obvious deformity. 1cm linear laceration into subcutaneous tissue to the left hand dorsal surface SKIN: Warm, dry, no rash. NEURO: No focal deficits. Alert and oriented x3. PSYCH: Normal mood and affect Course Course Emergency Course: Patient educated on further wound care Vital Signs Vital signs: Vital Signs Temperature 98.5 F 06/25/23 22:47 Pulse Rate 135 H 06/25/23 22:47 Respiratory Rate 18 06/25/23 22:47 Blood Pressure 142/92 H 06/25/23 22:47 Pulse Oximetry 95 06/25/23 22:47 Oxygen Delivery Room Air 06/25/23 22:47 Temperature 98.5 F 06/25/23 22:47 Pulse Rate 135 H 06/25/23 22:47 Respiratory Rate 18 06/25/23 22:47 Blood Pressure 142/92 H 06/25/23 22:47 Pulse Oximetry 95 06/25/23 22:47 Oxygen Delivery Room Air 06/25/23 22:47 Procedures Laceration Laceration 1: Date: 06/25/23 Time: 23:46 Site: hand Side (If applicable): left Size (cm): 1 Description: linear Depth: simple, single layer Local Anesthetic: lidocaine 1% and with epi Amount of anesthesia used (mL): 2 Pre-repair: wound explored and irrigated ====== Skin Level ====== Skin layer closed with: nylon Size (cm): 4-0 Number of sutures: 1 Technique: simple, interrupted ====== Subcutaneous Layer ====== ====== Muscle Layer ====== ====== Tendon Layer ====== MDM - Wound/Laceration MDM Narrative Medical decision making narrative: Patient presents to the ER for laceration to the left hand sustained just prior to arrival. His wound was thoroughly irrigated. I did probe the wound and did not find any foreign body (glass) in the wound. It was closed with sutures. He was updated on his tetanus vaccine. He was educated on further wound care. He was given warnings to return to the ER Patient tachycardic upon arrival to 135, this improved without intervention. Most recent heart rate 115. Looking at patient's previous vital signs this does
[2023-06-26] MEDS: TETANUS,DIPHTHERIA,AC PERTUSSIS ADULT (0.5 ML) BOOSTRIX IM (00:11)
[2023-06-26] MEDS: LIDO 1%/EPINEPHRINE 1:100,000 20 ML VIAL (00:20)
[2023-06-26 00:21] VITALS: BP 145/82; PULSE 115; RESP 15; O2SAT 99
== END 2023-06-26 00:23 | disposition home or self-care (01) ==
PROVIDERS: Emergency Provider Physician Assistant
DX: S61.412A Laceration without foreign body of left hand, initial encounter (principal); W25.XXXA Contact with sharp glass, initial encounter; Z23 Encounter for immunization
CPT/HCPCS: 12001; 90471; 90715; 99283

== ENCOUNTER 2023-09-26 12:10 | Emergency (ER) | payer BC, SELFPAY ==
--- NOTE | ~2023-09-26 | XR_ITS ---
XR_[id number] 09/26/2023 14:22 Indication: Neck pain. Limited range of motion. No injury. Procedure: 4 view cervical spine Comparison: No prior studies for comparison. Findings: Reversal of cervical lordosis. There is disc narrowing at C4-5, C5-6 and C6-7. There is adv anced multilevel uncinate and facet hypertrophy. No prevertebral soft tissue swelling. Lung apices ar e unremarkable. There is carotid atherosclerosis. Impression: 1: Severe cervical spondylosis. Reviewed, dictated and finalized at location B. [employer] AUDIT REPRESENTATIVE Impression: 1: Severe cervical spondylosis.
[2023-09-26 12:29] VITALS: BP 156/97; PULSE 93; RESP 18; TEMP 37.3; O2SAT 98
--- NOTE | 2023-09-26 14:04 | ED.BACK ---
HPI - Back Pain/Injury General Chief Complaint: Back Pain/Injury Stated Complaint: back pain Time Seen by Provider: 09/26/23 13:46 History of Present Illness HPI Narrative: 63-year-old male presenting to the emergency department for evaluation of talar neck pain. Patient reports the symptoms started 2 days ago. Patient denies any falls or injuries. Patient denies any cough colds or fevers. Related Data Allergies Allergy/AdvReac Type Severity Reaction Status Date / Time codeine Allergy Swelling Verified 09/26/23 13:34 morphine Allergy Swelling Verified 09/26/23 13:34 Sulfa (Sulfonamide Allergy Hives Verified 09/26/23 13:34 Antibiotics) Review of Systems Review of Systems: All systems reviewed & are unremarkable except as noted in HPI and below PMFSH Past Medical History Medical History High cholesterol Surgical History Surgical History No significant past surgical history Family History Family History Other Heart disease Social History Social History Smoking status: Current every day smoker Alcohol intake: current Gender identity (if verbalized by the patient): Male Exam Narrative: APPEARANCE: Well appearing, no pain, no distress, well-nourished. HEAD: normocephalic, atraumatic. EYES: PERRLA/EOMI, conjunctivae clear. NOSE: Normal no drainage EARS:TMS clear with good light reflex. THROAT: Pharynx clear, no exudate. NECK: Supple. No adenopathy, no masses. RESPIRATORY: Airway patent, respirations nonlabored. Clear to auscultation bilaterally, no rales, rhonchi, wheezing. CARDIOVASCULAR: Regular rate and rhythm without murmurs rubs or gallops. ABDOMINAL: Soft, nontender, nondistended, normal bowel sounds MUSCULOSKELETAL: no midline neck tenderness. Bilateral deltoid muscular tenderness. NEURO: Alert. Cranial nerves II through XII intact. Grossly intact SKIN: Warm, dry. Normal Color Course Course Emergency Course: 63-year-old male present to the ED for evaluation of bilateral muscular neck pain. X-rays were negative for acute fracture or dislocation. Patient was negative for influenza RSV and for COVID. Patient did feel improved with treatment. Patient's symptoms are most consistent with a wry neck /torticollis. Patient was updated on the treatment plan reasons to return to the emergency department. Patient was encouraged of close follow-up with primary care p Vital Signs Vital signs: Vital Signs Temperature 99.2 F 09/26/23 12:29 Pulse Rate 93 09/26/23 12:29 Respiratory Rate 18 09/26/23 12:29 Blood Pressure 156/97 H 09/26/23 12:29 Pulse Oximetry 98 09/26/23 12:29 Oxygen Delivery Room Air 09/26/23 12:29 Temperature 99.2 F 09/26/23 12:29 Pulse Rate 93 09/26/23 12:29 Respiratory Rate 18 09/26/23 12:29 Blood Pressure 156/97 H 09/26/23 12:29 Pulse Oximetry 98 09/26/23 12:29 Oxygen Delivery Room Air 09/26/23 12:29 MDM - Back Pain/Injury Lab Data Labs: Lab Results 09/26/23 Range/Units 14:10 Influenza A (RT-PCR) Negative (Negative) Influenza B (RT-PCR) Negative (Negative) RSV (RT-PCR) Negative (Negative) SARS-CoV-2 RNA (RT-PCR) Negative (Negative) Discharge Plan Discharge Clinical Impression: Acute neck pain Patient Disposition: Home, Self-Care Condition: Stable Instructions: Antibiotic Form, Acute Neck Pain (ED) Additional Instructions: Tylenol and ibuprofen for pain control. Flexeril for muscle spasm. Have close follow-up with your primary care physician. If you have any worsening symptoms then please call or return to the emergency department. Prescriptions: New cyclobenzaprine 10 mg tablet 10 mg PO BID PRN (Reason: muscle spasm) Qty: 14 0RF
[2023-09-26] MEDS: KETOROLAC 30 MG/ML VIAL (*BKC) IM (14:07)
[2023-09-26] MEDS: CYCLOBENZAPRINE HCL 10 MG TABLET PO (14:08)
[2023-09-26 14:56] LABS: Influenza A QL RT-PCR Negative (Negative); Influenza B QL RT-PCR Negative (Negative); RSV RNA, RT-PCR Negative (Negative); SARS-CoV-2 RNA PCR Negative (Negative)
== END 2023-09-26 16:22 | disposition home or self-care (01) ==
PROVIDERS: Emergency Provider Emergency Medicine
DX: M54.2 Cervicalgia (principal); Z20.822 Contact with and (suspected) exposure to COVID-19; E78.00 Pure hypercholesterolemia, unspecified; F17.200 Nicotine dependence, unspecified, uncomplicated
CPT/HCPCS: 72040; 87637; 96372; 99283; A9270; J1885

== ENCOUNTER 2023-10-15 18:40 | Emergency (ER) | payer BC, SELFPAY ==
[2023-10-15] VITALS (26 sets, daily range): BP systolic 115–148; BP diastolic 61–97; PULSE 73–92; RESP 12–22; TEMP 36.8; O2SAT 97–100
--- NOTE | ~2023-10-15 | CT_ITS ---
EXAMINATION: CT abdomen pelvis w con DATE: 10/15/2023 20:08 INDICATION: Right inguinal hernia. TECHNIQUE: Computed tomography (CT) of the abdomen and pelvis was performed with 100 cc Omnipaque 350 intravenous contrast. The dose-length product was 305.25 mGy-cm. Automated exposure control and iter ative reconstruction technique were employed. COMPARISON: None. FINDINGS: There is a right inguinal hernia. The hernia contains fat and soft tissue which is poorly d efined, although predominantly vascular there is mild-moderate lower thoracic and lumbar spondylosis. No focal lytic or blastic lesions.. No definite bowel intrusion into the hernia. No bowel obstructio n. Lung bases are unremarkable. Heart size normal. No significant pleural or pericardial effusion. There is atherosclerosis of the aorta without aneurysm. No lymphadenopathy. The liver, pancreas, adrenal glands and kidneys are unremarkable. There are calcified granulomas of t he spleen. Gallbladder is present. No free air or free fluid. IMPRESSION: 1. Right inguinal hernia without evidence for bowel intrusion or obstruction. Reviewed, dictated and finalized at location A. [employer] WORK
[2023-10-15 19:02] LABS: Basophils Percent Auto 0.3 % (0.2-1.2); Eosinophils Absolute Auto 0.1 K/mm3 (0-0.3); Eosinophils Percent Auto 0.7 % (0-4.4); Hematocrit 43.3 % (42.0-52.0); Hemoglobin 14.3 g/dL (14.0-18.0); Immature Granulocyte Absolute 0.04 K/mm3 (0.00-0.031); Immature Granulocyte Percent A 0.3 % (0-0.5); Lymphocytes Absolute Auto 1.72 K/mm3 (0.9-3.2); Lymphocytes Percent Auto 14.3 % (18.3-44.2); Mean Corpuscular Hemoglobin 30.1 pg (26-34); Mean Corpuscular Volume 91.2 fl (80-100); Mean Platelet Volume 9.5 fl (7.4-10.4); Monocytes Absolute Auto 1.3 K/mm3 (0.1-0.6); Monocytes Percent Auto 10.7 % (2.6-8.5); Neutrophils Absolute Auto 8.9 K/mm3 (1.3-6.7); Neutrophils Percent Auto 73.7 % (45.5-73.1); Platelet Count Result 263 k/mm3 (150-375); Red Blood Count 4.75 M/mm3 (4.6-6.20); Red Cell Distribution Width 12.7 % (11.5-14.5)
[2023-10-15 19:12] LABS: Alanine Aminotransferase 18 U/L (6-50); Albumin Level 4.6 g/dL (3.5-5.1); Alkaline Phosphatase 88 U/L (38-126); Anion Gap 11 mmol/L (8-16); Aspartate Amino Transferase 42 U/L (17-59); Bilirubin,Total 0.6 mg/dL (0.2-1.3); Blood Urea Nitrogen 34 mg/dL (9-20); Calcium 9.3 mg/dL (8.4-10.2); Carbon Dioxide 24 mmol/L (22-30); Chloride 103 mmol/L (98-107); Estimated CRCL calculation 50 ml/min; Estimated Glomerular Filt Rate 52; Glucose 100 mg/dL (65-110); Lipase 116 U/L (23-300); Potassium 4.2 mmol/L (3.4-5.0); Sodium 138 mmol/L (137-145)
[2023-10-15] MEDS: SODIUM CHLORIDE 0.9% IV 1,000 ML 999 ML IV CONT ×2 (19:37→20:58)
--- NOTE | 2023-10-15 19:37 | ED.ABDPAIN ---
HPI - Abdominal Pain General Chief Complaint: Abdominal Pain Stated Complaint: abd pain Time Seen by Provider: 10/15/23 18:45 Source: patient Mode of arrival: EMS Limitations: no limitations History of Present Illness HPI narrative: Patient is a 63 y/o male who presents to the ED via EMS with c/o painful R inguinal hernia. Patient reports the hernia has been present for the last 1 year. He states he is typically bulged outward, does not necessarily reduce all the way in. He has had intermittent pain associated with it. Pain became worse today several hours ago. Denies straining or injuring himself in any way. Denies N/V, fevers, constipation, diarrhea. Last BM 2 days ago and normal. Related Data Allergies Allergy/AdvReac Type Severity Reaction Status Date / Time codeine Allergy Swelling Verified 09/26/23 13:34 morphine Allergy Swelling Verified 09/26/23 13:34 Sulfa (Sulfonamide Allergy Hives Verified 09/26/23 13:34 Antibiotics) Review of Systems Review of Systems: CONSTITUTIONAL: Denies fever, chills, or sweats. GASTROINTESTINAL: Denies abdominal pain, nausea, vomiting, constipation or diarrhea. MUSCULOSKELETAL: See HPI NEUROLOGIC: Denies headache, dizziness, numbness, or weakness. All systems reviewed & are unremarkable except as noted in HPI and below PMFSH Past Medical History Medical History High cholesterol Surgical History Surgical History No significant past surgical history Family History Family History Other Heart disease Social History Social History Smoking status: Current every day smoker Alcohol intake: current Gender identity (if verbalized by the patient): Male Exam Narrative: GENERAL: Appears older than stated age, thin, non-toxic, in no acute distress. HEAD: Normocephalic, atraumatic. RESPIRATORY: Airway patent, respirations nonlabored. Clear to auscultation bilaterally, no rales, rhonchi, wheezing. CARDIOVASCULAR: Regular rate and rhythm without murmurs, rubs, or gallops. ABDOMINAL: Soft, No significant tenderness throughout abdomen, nondistended. Normoactive BS. MUSCULOSKELETAL: Moves all extremities. No gross deformities. R inguinal region with hernia bulge present, soft, focal tenderness to palpation, no crepitus, no overlying skin changes/erythema/warmth. Difficulty reducing hernia d/t tenderness. SKIN: Warm, dry, normal color. NEURO: A&O X3. Speech clear. Cranial nerves II-XII grossly intact. Steady gait. No ataxic movements. PSYCHIATRIC: Appropriate mood and affect. Normal interaction. Course Vital Signs Vital signs: Vital Signs Temperature 98.3 F 10/15/23 18:36 Pulse Rate 86 10/15/23 18:36 Respiratory Rate 17 10/15/23 18:36 Blood Pressure 142/83 H 10/15/23 18:36 Pulse Oximetry 98 10/15/23 18:36 Oxygen Delivery Room Air 10/15/23 18:36 Temperature 98.3 F 10/15/23 18:36 Pulse Rate 83 10/15/23 22:26 Respiratory Rate 17 10/15/23 22:26 Blood Pressure 139/78 10/15/23 22:26 Pulse Oximetry 97 10/15/23 22:26 Oxygen Delivery Room Air 10/15/23 18:36 MDM - Abdominal Pain MDM Narrative Medical decision making narrative: Patient presented to ED with painful hernia bulge, known R inguinal hernia. On exam, hernia bulge significantly tender but not firm, no significant swelling, no overlying skin changes, difficult to reduce d/t pain. Will attempt pain control, utilize ice pack and attempt reduction. CBC with leukocytosis of 12. CMP with creatinine of 1.4, increased from patient's baseline around 0.7-0.8. Fluids initiated. Lab work otherwise unremarkable. Lactic acid WNL. CT abdomen pelvis obtained and showing right inguinal hernia, no evidence of bowel intrusion/strangulation, no jorden
--- NOTE | 2023-10-15 19:55 | PC.NURSE ---
pt states they are unable to void at this time. pt also requested to not get straight cath. IV fluids administered and pt educated to use call light when they have the urge to void.
[2023-10-15 19:57] LABS: Ethanol < 10 mg/dL (<10); Lactic Acid Reflex 1.2 mmol/L (0.7-2.0)
[2023-10-15] MEDS: fentaNYL CITRATE INJ (*CRX) 100 MCG/2 ML VIAL 25 MCG IV PUSH (21:11)
[2023-10-15] MEDS: ONDANSETRON INJ 4 MG/2 ML VIAL IV PUSH (21:11)
--- NOTE | 2023-10-15 21:21 | PC.NURSE ---
pt states that they do not want any pain medications even if they're not opiates, but also states they do not want anyone to touch their hernia. provider notified, no further orders at this time.
== END 2023-10-15 22:28 | disposition home or self-care (01) ==
PROVIDERS: Emergency Provider Physician Assistant
DX: K40.90 Unilateral inguinal hernia, without obstruction or gangrene, not specified as recurrent (principal); N17.9 Acute kidney failure, unspecified; F17.200 Nicotine dependence, unspecified, uncomplicated
CPT/HCPCS: 36415; 74177; 80053; 80307; 83605; 83690; 85025; 96361; 96374; 96375; 99284; J2405; J3010; J7030; Q9967

== ENCOUNTER 2024-02-02 14:06 | Emergency (ER) | payer BC, SELFPAY ==
[2024-02-02 14:08] VITALS: BP 134/90; PULSE 85; RESP 18; TEMP 36.3; O2SAT 100
--- NOTE | 2024-02-02 17:42 | ED.ABDPAIN ---
HPI - Abdominal Pain General Chief Complaint: Abdominal Pain Stated Complaint: Hernia Time Seen by Provider: 02/02/24 16:42 Source: patient Mode of arrival: ambulatory Limitations: no limitations History of Present Illness HPI narrative: this is a 63-year-old male with PMH of inguinal hernia that presents to the ED for chief complaint of hernia pain for the past several days. Reports that he has known right-sided inguinal hernia. States he is normally able to kind of reduce the hernia on his own but was unable today. States he has been seen here multiple times in the past and given referrals to doctors but he has not been scheduled for any kind of surgery. Patient states that he called the doctor and was told because he has not been seen in a year that they cannot see him. Triage note mentions that he has not got his hernia fixed because he wants to be able to smoke. Denies fevers, chills, nausea, vomiting, problems with bowel movements, urinary symptoms, skin changes, testicle pain. Related Data Allergies Allergy/AdvReac Type Severity Reaction Status Date / Time codeine Allergy Swelling Verified 02/02/24 14:13 morphine Allergy Swelling Verified 02/02/24 14:13 Sulfa (Sulfonamide Allergy Hives Verified 02/02/24 14:13 Antibiotics) Review of Systems Review of Systems: All systems as dictated in HPI ON LICENSE OF [facility] Past Medical History Medical History High cholesterol Surgical History Surgical History No significant past surgical history Family History Family History Other Heart disease Social History Social History Smoking status: Current every day smoker Alcohol intake: current Gender identity (if verbalized by the patient): Male Exam Narrative: GENERAL: Well-appearing, well-nourished, and in no acute distress. HEAD: Normocephalic, atraumatic. EYES: PERRLA and EOMI. ENT: Nares clear, no rhinorrhea or epistaxis. Mucous membranes moist. Oropharynx without tonsillar hypertrophy exudate or other lesions. NECK: Supple. No adenopathy or masses. CHEST: No respiratory distress. Clear to auscultation. No wheezes rales or rhonchi HEART: Regular rate and rhythm. No murmur heard. Normal peripheral pulses. ABDOMEN: right inguinal hernia noted on exam. It is easily reducible in Trendelenburg position. no overlying skin changes. Soft, nontender, nondistended, normal active bowel sounds. MSK: Normal range of motion. No edema. SKIN: Warm, dry, no rash. NEURO: Alert and oriented x3. No focal deficits. PSYCH: Normal mood and affect. Course Vital Signs Vital signs: Vital Signs Temperature 97.3 F L 02/02/24 14:08 Pulse Rate 85 02/02/24 14:08 Respiratory Rate 18 02/02/24 14:08 Blood Pressure 134/90 02/02/24 14:08 Pulse Oximetry 100 02/02/24 14:08 Oxygen Delivery Room Air 02/02/24 14:08 Temperature 97.3 F L 02/02/24 14:08 Pulse Rate 85 02/02/24 14:08 Respiratory Rate 18 02/02/24 14:08 Blood Pressure 134/90 02/02/24 14:08 Pulse Oximetry 100 02/02/24 14:08 Oxygen Delivery Room Air 02/02/24 14:08 MDM - Abdominal Pain MDM Narrative Medical decision making narrative: This is a 63-year-old male who presents to the ED with chief complaint of hernia pain. Known hernia for over 1 year. Vitals are normal. Exam is benign. There is a right inguinal hernia present. It is easily reducible on exam. There are no overlying skin changes to suggest incarceration or strangulation. He feels comfortable after reduction. He was given Tylenol and ibuprofen here. He was also given surgical referral and we had discussion that this needs to be treated by a surgeon. Pt will be discharged in stable condition. Return prec
[2024-02-02] MEDS: IBUPROFEN 400 MG TABLET 800 MG PO (18:02)
[2024-02-02] MEDS: ACETAMINOPHEN 500 MG TABLET 1000 MG PO (18:02)
[2024-02-02 18:11] VITALS: BP 134/88; PULSE 82; RESP 17; O2SAT 100
== END 2024-02-02 18:12 | disposition home or self-care (01) ==
PROVIDERS: Emergency Provider Physician Assistant
DX: K40.90 Unilateral inguinal hernia, without obstruction or gangrene, not specified as recurrent (principal); E78.00 Pure hypercholesterolemia, unspecified; F17.200 Nicotine dependence, unspecified, uncomplicated
CPT/HCPCS: 99283; A9270